=== PATIENT | male | born 1995 | race Caucasian/White ===

== ENCOUNTER 2018-12-05 07:47 | Day surgery (SDC) | payer BC ==
[~2018-12-05] VITALS: Ht 180.3 cm; Wt 86.3 kg
[~2018-12-05 07:47] MED LIST: CEPH500 PO; Cipro500 MG PO
--- NOTE | 2018-12-05 08:26 | NUR ---
[facility] ADMISSION TO UNIT STARTED. Ambulatory in Day Surgery History, Chart, Medications and Allergies reviewed before start of procedure.Lungs clear T/O to Auscultation. Patient confirms NPO status and agrees with scheduled surgery.
--- NOTE | 2018-12-05 12:50 | NUR ---
Discharge instructions reviewed with patient. Patient verbalizes understanding. Copy given to patient to take home. AWAITING RIDE HOME, MOTHER TO ARRIVE APPROX 1300. DRG C/D/I,BULB LUDIV[place] HAS NOTHING COLLECTED YET. DEMONSTRATED TO PT HOW TO REMOVE DRAINAGE. PT VERBALIZED INSTRUCTIONS BACK.
--- NOTE | 2018-12-05 13:29 | NUR ---
1315- MOTHER CALLED AGAIN, NO ANSWER, PT TRYING TO CALL AND CALL OTHERS FOR RIDE. PT DRESSED, IV OUT, READY FOR DC HOME.
--- NOTE | 2018-12-05 13:54 | NUR ---
PT MOTHER ARRIVED, REVIEWED INSTRUCTIONS W/PT AND MOTHER AGAIN. Discharged to private car for ride home. AMBULATED STEADY ON FEET.
== END 2018-12-05 23:03 | disposition home or self-care (01) ==
LOC: ORSCMMR 07:47 → ORD 09:30 → ORSCMMR 09:30 → ORD 13:00 → ORSCMMR 23:03
PROVIDERS: Surgery
PROC: 0HX8XZZ Transfer Buttock Skin, External Approach (ICD-10-PCS; principal; 2018-12-05 09:30)
PROC: 0JB90ZZ Excision of Buttock Subcutaneous Tissue and Fascia, Open Approach (ICD-10-PCS; principal; 2018-12-05 09:30)
DX: L05.01 Pilonidal cyst with abscess (principal)
CPT/HCPCS: 88304; J1100; J1956; J2250; J2370; J2405; J2704; J2710; J3010; J7120